=== PATIENT | female | born 1965 | race Caucasian/White ===

== ENCOUNTER → 2018-02-28 | Outpatient (CLI) | payer OTHER | LOC: M WHC 08:03 | DX: Z12.31 Encounter for screening mammogram for malignant neoplasm of breast (principal); E28.39 Other primary ovarian failure | CPT/HCPCS: 77067 ==

== ENCOUNTER 2018-06-03 06:40 | Day surgery (SDC) | payer OTHER ==
[2018-06-03] MEDS: NS 1,000 ML IV (07:00)
[2018-06-03] MEDS ORDERED: PROPOFOL 200 MG/20 ML VIAL As Ordered (07:00)
[2018-06-03] MEDS ORDERED: LIDOCAINE 2% INJ 100 MG/5 ML SDV (FOR ANES.) As Ordered (07:00)
== END 2018-06-03 08:12 | disposition home or self-care (01) ==
LOC: M OPP 06:40
DX: Z12.11 Encounter for screening for malignant neoplasm of colon (principal); D12.5 Benign neoplasm of sigmoid colon; K64.0 First degree hemorrhoids; K57.30 Diverticulosis of large intestine without perforation or abscess without bleeding; Z78.0 Asymptomatic menopausal state; F17.210 Nicotine dependence, cigarettes, uncomplicated; Z88.1 Allergy status to other antibiotic agents; Z80.41 Family history of malignant neoplasm of ovary
CPT/HCPCS: 45385

== ENCOUNTER → 2018-06-19 | Outpatient (REF) | payer OTHER ==
[2018-06-19 12:39] LABS: BASO # 0.1 10^3/uL (0.0-0.2); BASO % 0.7 % (0.0-1.0); EOS # 0.8 10^3/uL (0.0-0.50); EOS % 9.1 % (0.0-3.0); HEMATOCRIT 42.1 % (36.0-47.0); HEMOGLOBIN 14.1 g/dl (12.0-15.5); IMMATURE GRANULOCYTE % 0.2 % (0-3.0); LYMPH # 2.2 10^3/uL (1.5-4.5); LYMPH % 24.1 % (24.0-44.0); MEAN CORPUSCULAR HEMOGLOBIN 31.5 pg (27.0-33.0); MEAN CORPUSCULAR HGB CONC 33.5 g/dl (32.0-36.5); MEAN CORPUSCULAR VOLUME 94.2 fl (80.0-96.0); MONO # 1.2 10^3/uL (0.0-0.8); MONO % 13.6 % (0.0-5.0); NEUTROPHILS # 4.7 10^3/uL (1.8-7.7); NEUTROPHILS % 52.3 % (36.0-66.0); PLATELET COUNT, AUTOMATED 210 10^3/uL (150-450); RED BLOOD COUNT 4.47 10^6/uL (4.00-5.40); RED CELL DISTRIBUTION WIDTH 12.1 % (11.5-14.5)
[2018-06-19 12:57] LABS: ALBUMIN 3.6 GM/DL (3.2-5.2); ALBUMIN/GLOBULIN RATIO 1.24 (1.00-1.93); ALKALINE PHOSPHATASE 82 U/L (45-117); ALT/SGPT 26 U/L (12-78); ANION GAP 4 MEQ/L (8-16); AST/SGOT 16 U/L (7-37); BILIRUBIN,TOTAL 0.3 MG/DL (0.2-1.0); BLOOD UREA NITROGEN 17 MG/DL (7-18); CALCIUM LEVEL 9.1 MG/DL (8.5-10.1); CARBON DIOXIDE LEVEL 28 MEQ/L (21-32); CHLORIDE LEVEL 109 MEQ/L (98-107); CHOLESTEROL LEVEL 200 MG/DL (<200); CHOLESTEROL RISK RATIO 4.255 (<5); CREATININE FOR GFR 0.76 MG/DL (0.55-1.30); FREE T4 0.93 NG/DL (0.76-1.46); GLOMERULAR FILTRATION RATE > 60.0 (>51); GLUCOSE, FASTING 89 MG/DL (70-100); HDL CHOLESTEROL 47 MG/DL (>40); LDL CHOLESTEROL 119 MG/DL (<100); NON-HDL-C 153 MG/DL; SODIUM LEVEL 141 MEQ/L (136-145); TOTAL PROTEIN 6.5 GM/DL (6.4-8.2); TRIGLYCERIDES LEVEL 169 MG/DL (<150)
[2018-06-19 12:59] LABS: PTH INTACT 46.7 PG/ML (18.5-88.0); TOTAL 25(OH) VITAMIN D 21.9 NG/ML (30.0-100.0)
[2018-06-19 13:34] LABS: ESTIMATED AVERAGE GLUCOSE 123 MG/DL (60-110); HEMOGLOBIN A1c 5.9 %
== END ==
LOC: M LABDRAW1 12:23
DX: E66.3 Overweight (principal); E55.9 Vitamin D deficiency, unspecified
CPT/HCPCS: 84443

== ENCOUNTER → 2018-09-03 | Outpatient (CLI) | payer OTHER ==
--- NOTE | 2018-09-04 08:17 | REP ---
Clinical: Nodule by physical examination. Technique: Real time blackwell scale and color evaluation using linear high frequency and curved array transducers. Findings: The thyroid gland is upper limits of normal in size and demonstrates multiple bilateral hypoechoic nodules suggesting the possibility of colloid cysts. Isthmus measures 2.7 mm in width. Right lobe measures 5.3 x 2.4 x 1.8 cm and includes multiple hypoechoic cystic nodules with internal debris measuring 16 x 8 x 11 mm in the upper pole, 8 x 5 x 8 and 8 x 5 x 7 mm in the mid pole, and 7 x 4 x 5 mm in the lower pole. The left lobe measures 5.3 x 1.9 x 1.5 cm and includes dominant complex hypoechoic lesion in the mid pole measuring 18 x 9 x 16 mm along with smaller hypoechoic cystic nodules with internal debris measuring 9 x 5 x 6 mm in the upper pole, 5 x 5 x 4 mm, 6 x 5 x 4 mm, and 7 x 4 x 5 mm in the mid pole. Impression: Bilateral complex hypoechoic cystic nodular lesions the largest of which is noted in the left lobe. Findings are nonspecific but may represent scattered colloid cysts. Electronically Signed by Seamus Kaba MD 09/04/2018 08:08 A
== END ==
LOC: M RAD 10:18
PROVIDERS: ATTEND Family Medicine
DX: E04.1 Nontoxic single thyroid nodule (principal)

== ENCOUNTER → 2018-10-01 | Outpatient (CLI) | payer OTHER ==
[~2018-10-01] MED LIST: LIDOCAINE 1% MDV 20ML VIAL As Ordered ONE
--- NOTE | 2018-10-01 18:31 | REP ---
ULTRASOUND-GUIDED LEFT THYROID BIOPSY The procedure was performed under the direct supervision of Dr. Mckenna. Patient has a history of a hypoechoic lesion in the mid pole of the left thyroid measuring 1.8 x 0.9 x 1.6 cm seen on a previous ultrasound dated 09/03/2018. The risks and benefits of the procedure were explained to the patient and informed consent was obtained. The left thyroid nodule was localized using ultrasound guidance. The skin was prepped and draped in a sterile fashion. 1% lidocaine was used as a local anesthetic. Using ultrasound guidance four fine-needle aspirations were obtained using 25 gauge needles. The patient tolerated the procedure well and there were no immediate complications. After the appropriate amount of monitored convalescence the patient was discharged from the department. Reviewed by THOMAS Jenkins 10/01/2018 05:45 P Electronically Signed by Sandoval Mckenna MD 10/01/2018 06:22 P
== END ==
LOC: M RADPRO 12:56
PROVIDERS: ATTEND Physician Assistant Medical
DX: E04.1 Nontoxic single thyroid nodule (principal); Z88.1 Allergy status to other antibiotic agents

== ENCOUNTER → 2019-05-12 | Outpatient (REF) | payer OTHER ==
[2019-05-12 13:26] LABS: APPEARANCE, URINE HAZY (CLEAR); BACTERIA, URINE AUTO NEGATIVE (NEGATIVE); BILIRUBIN, URINE AUTO NEGATIVE (NEGATIVE); BLOOD, URINE BLOOD NEGATIVE (NEGATIVE); COLOR, URINE YELLOW (YELLOW); GLUCOSE, URINE (UA) AUTO NEGATIVE (NEGATIVE); KETONE, URINE AUTO NEGATIVE (NEGATIVE); LEUKOCYTE ESTERASE, URINE AUTO 1+ (NEGATIVE); MUCUS, URINE SMALL (NEGATIVE); NITRITE, URINE AUTO NEGATIVE (NEGATIVE); PROTEIN, URINE AUTO NEGATIVE (NEGATIVE); RBC, URINE AUTO 1 /HPF (0-3); SPECIFIC GRAVITY URINE AUTO 1.018 (1.002-1.035); SQUAMOUS EPITHELIAL CELL UR AU 8 /HPF (0-6); UROBILINOGEN, URINE AUTO 0.2 mg/dL (0.0-2.0); WBC, URINE AUTO 8 /HPF (0-3)
[2019-05-12 13:44] LABS: ALBUMIN 3.5 GM/DL (3.2-5.2); ALT/SGPT 28 U/L (12-78); BILIRUBIN,TOTAL 0.4 MG/DL (0.2-1.0); BLOOD UREA NITROGEN 19 MG/DL (7-18); CALCIUM LEVEL 9.2 MG/DL (8.5-10.1); CARBON DIOXIDE LEVEL 28 MEQ/L (21-32); CHLORIDE LEVEL 109 MEQ/L (98-107); CREATININE FOR GFR 0.88 MG/DL (0.55-1.30); GLOMERULAR FILTRATION RATE > 60.0 (>51); GLUCOSE, FASTING 89 MG/DL (70-100); POTASSIUM SERUM 4.7 MEQ/L (3.5-5.1); SODIUM LEVEL 143 MEQ/L (136-145); TOTAL PROTEIN 6.7 GM/DL (6.4-8.2)
[2019-05-12 13:52] LABS: VITAMIN B12 LEVEL 351 PG/ML (247-911)
[2019-05-12 13:58] LABS: MALB URINE SIEMENS 13.7 MG/L; MAU/CREAT RATIO 9.9 MCG/MG (0.0-30.0)
[2019-05-12 14:20] LABS: HEMOGLOBIN A1c 5.6 %
[2019-05-13 09:45] LABS: ALBUMIN 4.05 GM/DL (3.29-5.55); ALBUMIN % 60.5 % (55.8-66.1); ALPHA-1-GLOBULIN % 4.8 % (2.9-4.9); ALPHA-1-GLOBULINS 0.32 GM/DL (0.17-0.41); ALPHA-2-GLOBULINS % 10.5 % (7.1-11.8); BETA-1-GLOBULINS 0.38 GM/DL (0.28-0.60); BETA-1-GLOBULINS % 5.7 % (4.7-7.2); BETA-2-GLOBULINS 0.31 GM/DL (0.19-0.55); BETA-2-GLOBULINS % 4.6 % (3.2-6.5); GAMMA GLOBULIN % 13.9 % (11.1-18.8); GAMMA GLOBULINS 0.93 GM/DL (0.65-1.58)
== END ==
LOC: M LABDRAW1 11:41
PROVIDERS: ATTEND Family Medicine
DX: R73.01 Impaired fasting glucose (principal); E55.9 Vitamin D deficiency, unspecified

== ENCOUNTER → 2019-08-25 | Outpatient (CLI) | payer OTHER ==
--- NOTE | 2019-08-26 03:38 | REP ---
Clinical: Multinodular goiter. Comparison: 09/03/2018. Technique: Real time blackwell scale and color evaluation using linear high frequency transducer. Findings: The thyroid gland is heterogeneous and demonstrates scattered complex hypoechoic cystic areas similar to prior examination. Right lobe measures 4.4 x 2.0 x 1.8 cm with complex cysts likely representing colloid cysts measuring between 8 x 4 x 7 mm and 17 x 7 x 8 mm. Left lobe measures 4.7 x 1.8 x 1.2 cm with complex cysts likely representing colloid cysts measuring between 4 x 5 x 2 mm and 10 x 6 x 4 mm. Impression: Bilateral complex cysts similar in appearance to prior examination. Electronically Signed by Seamus Kaba MD 08/26/2019 03:30 A
== END ==
LOC: M RAD 08:45
PROVIDERS: ATTEND Family Medicine
DX: E04.2 Nontoxic multinodular goiter (principal)

== ENCOUNTER → 2019-10-14 | Outpatient (REF) | payer OTHER ==
[2019-10-14 11:11] LABS: CHOLESTEROL LEVEL 201 MG/DL (<200); FREE T4 1.04 NG/DL (0.76-1.46); HDL CHOLESTEROL 50 MG/DL (>40); LDL CHOLESTEROL 131 MG/DL (<100); NON-HDL-C 151 MG/DL; TRIGLYCERIDES LEVEL 102 MG/DL (<150)
[2019-10-16 08:06] LABS: FREE KAPPA LIGHT CHAINS URINE 98.95 mg/L (0.63-113.79); FREE LAMBDA LIGHT CHAINS SERUM 15.3 mg/L (5.7-26.3); FREE LAMBDA LIGHT CHAINS URINE 5.03 mg/L (0.47-11.77); KAPPA/LAMBDA RATIO SERUM 1.57 (0.26-1.65); KAPPA/LAMBDA RATIO URINE 19.67 (1.03-31.76)
[2019-10-16 11:26] LABS: IMMUNOTYPING SERUM IGM ABNORMAL (NORMAL); IMMUNOTYPING SERUM KAPPA ABNORMAL (NORMAL)
== END ==
LOC: M LABDRAW1 10:02
PROVIDERS: ATTEND Family Medicine
DX: E78.2 Mixed hyperlipidemia (principal); R73.01 Impaired fasting glucose; D47.2 Monoclonal gammopathy

== ENCOUNTER → 2020-04-07 | Outpatient (CLI) | payer OTHER ==
[2020-04-07 11:02] LABS: BASO # 0.1 10^3/uL (0.0-0.2); BASO % 0.8 % (0.0-1.0); EOS # 0.7 10^3/uL (0.0-0.5); EOS % 9.2 % (0.0-3.0); HEMATOCRIT 45.7 % (36.0-47.0); HEMOGLOBIN 15.2 g/dl (12.0-15.5); LYMPH # 2.3 10^3/uL (1.5-5.0); MEAN CORPUSCULAR HEMOGLOBIN 31.3 pg (27.0-33.0); MEAN CORPUSCULAR HGB CONC 33.3 g/dl (32.0-36.5); MONO # 1.1 10^3/uL (0.0-0.8); MONO % 15.5 % (0.0-5.0); NEUTROPHILS % 42.2 % (36.0-66.0); PLATELET COUNT, AUTOMATED 210 10^3/uL (150-450); RED BLOOD COUNT 4.86 10^6/uL (4.00-5.40); WHITE BLOOD COUNT 7.2 10^3/uL (4.0-10.0)
[2020-04-07 11:17] LABS: ALBUMIN 3.7 GM/DL (3.2-5.2); ALT/SGPT 24 U/L (12-78); BILIRUBIN,TOTAL 0.4 MG/DL (0.2-1.0); BLOOD UREA NITROGEN 15 MG/DL (7-18); C REACTIVE PROTEIN QUANTITATIV 0.38 MG/DL (0.00-0.30); CALCIUM LEVEL 9.5 MG/DL (8.5-10.1); CARBON DIOXIDE LEVEL 28 MEQ/L (21-32); CHLORIDE LEVEL 107 MEQ/L (98-107); CHOLESTEROL LEVEL 223 MG/DL (<200); CHOLESTEROL RISK RATIO 4.847 (<5); FREE T4 1.09 NG/DL (0.76-1.46); GLOMERULAR FILTRATION RATE > 60.0 (>51); GLUCOSE, FASTING 97 MG/DL (70-100); HDL CHOLESTEROL 46 MG/DL (>40); LDL CHOLESTEROL 149 MG/DL (<100); NON-HDL-C 177 MG/DL; SODIUM LEVEL 139 MEQ/L (136-145); TOTAL PROTEIN 7.1 GM/DL (6.4-8.2); TRIGLYCERIDES LEVEL 138 MG/DL (<150)
[2020-04-07 11:24] LABS: HEMOGLOBIN A1c 5.9 %
[2020-04-08 13:09] LABS: ALBUMIN % 60.6 % (55.8-66.1); ALPHA-1-GLOBULIN % 4.8 % (2.9-4.9); ALPHA-1-GLOBULINS 0.34 GM/DL (0.17-0.41); ALPHA-2-GLOBULINS % 11.2 % (7.1-11.8); BETA-1-GLOBULINS % 5.6 % (4.7-7.2); BETA-2-GLOBULINS 0.33 GM/DL (0.19-0.55); BETA-2-GLOBULINS % 4.7 % (3.2-6.5); GAMMA GLOBULIN % 13.1 % (11.1-18.8); GAMMA GLOBULINS 0.93 GM/DL (0.65-1.58)
== END ==
LOC: M PLALAB 08:09
PROVIDERS: ATTEND Family Medicine
DX: R73.01 Impaired fasting glucose (principal); D47.2 Monoclonal gammopathy; E04.2 Nontoxic multinodular goiter

== ENCOUNTER → 2020-04-13 | Outpatient (CLI) | payer OTHER ==
--- NOTE | 2020-04-13 09:30 | REPMRS ---
Patient History The patient states she has not had a clinical breast exam in over a year. Family history of ovarian cancer under age 50 in mother. Benign incisional biopsy of both breasts. 3D TOMOSYNTHESIS WAS PERFORMED. The [facility] lifetime risk for breast cancer is 10.6%. NATALIIA VILLALBA A. Digital Woman Screen Mammo: April 13, 2020 - Exam #: [id number] Bilateral CC and MLO view(s) were taken. Technologist: Siri Jimenez, Technologist Prior study comparison: February 28, 2018, bilateral digital woman screen mammo performed at [facility]. 2006, bilateral screening mammogram performed at [facility]. FINDINGS: There are scattered fibroglandular densities. There has been no change in the appearance of the mammogram from the prior studies. There is a mild amount of residual fibroglandular tissue which is fairly symmetric. There is no interval development of dominant mass, architectural distortion, or clustered microcalcification suggestive of malignancy. Assessment: BI-RADS/ACR category 1 mammogram. Negative Mammogram. Recommendation Routine screening mammogram in 1 year (for women over age 40). This mammogram was interpreted with the aid of an FDA-approved computer-aided dectection system. Electronically Signed By: Yan Blackburn MD 04/13/20 0924
== END ==
LOC: M WHC 07:53
PROVIDERS: ATTEND Family Medicine
DX: Z12.31 Encounter for screening mammogram for malignant neoplasm of breast (principal); Z80.41 Family history of malignant neoplasm of ovary

== ENCOUNTER → 2020-10-22 | Outpatient (REF) | payer OTHER ==
[2020-10-22 11:04] LABS: BASO # 0.1 10^3/uL (0.0-0.2); BASO % 0.7 % (0.0-1.0); EOS # 0.6 10^3/uL (0.0-0.5); EOS % 6.3 % (0.0-3.0); HEMATOCRIT 45.2 % (36.0-47.0); LYMPH # 2.5 10^3/uL (1.5-5.0); LYMPH % 27.7 % (24.0-44.0); MEAN CORPUSCULAR HEMOGLOBIN 31.2 pg (27.0-33.0); MEAN CORPUSCULAR HGB CONC 33.2 g/dl (32.0-36.5); MONO # 1.3 10^3/uL (0.0-0.8); MONO % 14.2 % (2.0-8.0); NEUTROPHILS # 4.6 10^3/uL (1.5-8.5); NEUTROPHILS % 50.9 % (36.0-66.0); PLATELET COUNT, AUTOMATED 209 10^3/uL (150-450); RED BLOOD COUNT 4.81 10^6/uL (4.00-5.40)
[2020-10-22 11:40] LABS: ALT/SGPT 22 U/L (12-78); BILIRUBIN,TOTAL 0.5 MG/DL (0.2-1.0); BLOOD UREA NITROGEN 20 MG/DL (7-18); CALCIUM LEVEL 9.8 MG/DL (8.5-10.1); CARBON DIOXIDE LEVEL 29 MEQ/L (21-32); CHLORIDE LEVEL 107 MEQ/L (98-107); CHOLESTEROL LEVEL 192 MG/DL (<200); CHOLESTEROL RISK RATIO 4.173 (<5); CPK CREATINE PHOSPHOKINASE 48 U/L (26-192); CREATININE FOR GFR 0.88 MG/DL (0.55-1.30); GLOMERULAR FILTRATION RATE > 60.0 (>51); GLUCOSE, FASTING 103 MG/DL (70-100); HDL CHOLESTEROL 46 MG/DL (>40); LDL CHOLESTEROL 119 MG/DL (<100); NON-HDL-C 146 MG/DL; POTASSIUM SERUM 4.8 MEQ/L (3.5-5.1); SODIUM LEVEL 141 MEQ/L (136-145); TRIGLYCERIDES LEVEL 134 MG/DL (<150)
[2020-10-22 13:11] LABS: HEMOGLOBIN A1c 5.6 %
[2020-10-25 12:28] LABS: ALBUMIN 4.18 GM/DL (3.29-5.55); ALBUMIN % 59.7 % (55.8-66.1); ALPHA-1-GLOBULINS 0.35 GM/DL (0.17-0.41); ALPHA-2-GLOBULINS 0.83 GM/DL (0.42-0.99); ALPHA-2-GLOBULINS % 11.8 % (7.1-11.8); BETA-1-GLOBULINS 0.38 GM/DL (0.28-0.60); BETA-1-GLOBULINS % 5.4 % (4.7-7.2); BETA-2-GLOBULINS 0.33 GM/DL (0.19-0.55); BETA-2-GLOBULINS % 4.7 % (3.2-6.5); GAMMA GLOBULIN % 13.4 % (11.1-18.8); GAMMA GLOBULINS 0.94 GM/DL (0.65-1.58)
== END ==
LOC: M SFHCPLAZ 08:25
PROVIDERS: ATTEND Family Medicine
DX: E55.9 Vitamin D deficiency, unspecified (principal); R73.01 Impaired fasting glucose; E78.2 Mixed hyperlipidemia; D47.2 Monoclonal gammopathy

== ENCOUNTER → 2020-11-17 | Outpatient (REF) | payer OTHER | LOC: M SFHCPLAZ 16:43 | PROVIDERS: ATTEND Family Medicine | DX: N61.1 Abscess of the breast and nipple (principal) ==

== ENCOUNTER → 2021-04-15 | Outpatient (CLI) | payer OTHER ==
[2021-04-15 13:28] LABS: APPEARANCE, URINE CLEAR (CLEAR); BACTERIA, URINE AUTO NEGATIVE (NEGATIVE); BILIRUBIN, URINE AUTO NEGATIVE (NEGATIVE); BLOOD, URINE BLOOD NEGATIVE (NEGATIVE); COLOR, URINE YELLOW (YELLOW); GLUCOSE, URINE (UA) AUTO NEGATIVE (NEGATIVE); KETONE, URINE AUTO NEGATIVE (NEGATIVE); LEUKOCYTE ESTERASE, URINE AUTO NEGATIVE (NEGATIVE); NITRITE, URINE AUTO NEGATIVE (NEGATIVE); PROTEIN, URINE AUTO NEGATIVE (NEGATIVE); RBC, URINE AUTO 1 /HPF (0-3); SPECIFIC GRAVITY URINE AUTO 1.014 (1.002-1.035); SQUAMOUS EPITHELIAL CELL UR AU 2 /HPF (0-6); UROBILINOGEN, URINE AUTO 0.2 mg/dL (0.0-2.0); WBC, URINE AUTO 1 /HPF (0-3)
[2021-04-15 13:59] LABS: C REACTIVE PROTEIN QUANTITATIV < 0.30 MG/DL (0.00-0.30); CHOLESTEROL LEVEL 217 MG/DL (<200); CPK CREATINE PHOSPHOKINASE 59 U/L (26-192); HDL CHOLESTEROL 48 MG/DL (>40); LDL CHOLESTEROL 142 MG/DL (<100); NON-HDL-C 169 MG/DL; TOTAL PROTEIN 6.7 GM/DL (6.4-8.2); TRIGLYCERIDES LEVEL 137 MG/DL (<150)
[2021-04-15 14:15] LABS: CREATININE, URINE 78.8 MG/DL; MAU/CREAT RATIO 8.8 MCG/MG (0.0-30.0)
[2021-04-15 14:46] LABS: HEMOGLOBIN A1c 5.9 %
[2021-04-19 08:54] LABS: ALBUMIN 4.03 GM/DL (3.29-5.55); ALBUMIN % 60.2 % (55.8-66.1); ALPHA-1-GLOBULIN % 4.8 % (2.9-4.9); ALPHA-1-GLOBULINS 0.32 GM/DL (0.17-0.41); ALPHA-2-GLOBULINS 0.79 GM/DL (0.42-0.99); ALPHA-2-GLOBULINS % 11.8 % (7.1-11.8); BETA-1-GLOBULINS 0.35 GM/DL (0.28-0.60); BETA-1-GLOBULINS % 5.2 % (4.7-7.2); BETA-2-GLOBULINS 0.29 GM/DL (0.19-0.55); BETA-2-GLOBULINS % 4.4 % (3.2-6.5); GAMMA GLOBULIN % 13.6 % (11.1-18.8)
[2021-04-19 08:55] LABS: GAMMA GLOBULINS 0.91 GM/DL (0.65-1.58)
[2021-04-19 23:07] LABS: FREE KAPPA LIGHT CHAINS SERUM 33.2 mg/L (3.3-19.4); FREE KAPPA LIGHT CHAINS URINE 26.52 mg/L (0.63-113.79); FREE LAMBDA LIGHT CHAINS SERUM 15.7 mg/L (5.7-26.3); FREE LAMBDA LIGHT CHAINS URINE 3.05 mg/L (0.47-11.77); KAPPA/LAMBDA RATIO SERUM 2.11 (0.26-1.65); KAPPA/LAMBDA RATIO URINE 8.7 (1.03-31.76)
== END ==
LOC: M PLALAB 09:43
PROVIDERS: ATTEND Family Medicine
DX: D47.2 Monoclonal gammopathy (principal)

== ENCOUNTER → 2021-10-13 | Outpatient (CLI) | payer OTHER ==
[2021-10-13 11:24] LABS: HEMATOCRIT 42.5 % (36.0-47.0)
[2021-10-13 11:31] LABS: BASO # 0.1 10^3/uL (0.0-0.2); BASO % 1.1 % (0.0-1.0); EOS # 0.7 10^3/uL (0.0-0.5); EOS % 9.7 % (0.0-3.0); HEMATOCRIT 42.3 % (36.0-47.0); HEMOGLOBIN 14.2 g/dl (12.0-15.5); LYMPH % 39.4 % (24.0-44.0); MEAN CORPUSCULAR HGB CONC 33.6 g/dl (32.0-36.5); MEAN CORPUSCULAR VOLUME 92.4 fl (80.0-96.0); MONO # 1.1 10^3/uL (0.0-0.8); MONO % 14.9 % (2.0-8.0); NEUTROPHILS # 2.6 10^3/uL (1.5-8.5); NEUTROPHILS % 34.6 % (36.0-66.0); PLATELET COUNT, AUTOMATED 189 10^3/uL (150-450); RED BLOOD COUNT 4.58 10^6/uL (4.00-5.40); WHITE BLOOD COUNT 7.6 10^3/uL (4.0-10.0)
[2021-10-13 11:58] LABS: HEMOGLOBIN A1c 5.7 %
[2021-10-13 16:31] LABS: ALBUMIN 3.7 GM/DL (3.2-5.2); ALT/SGPT 32 U/L (12-78); BILIRUBIN,TOTAL 0.2 MG/DL (0.2-1.0); BLOOD UREA NITROGEN 27 MG/DL (7-18); CALCIUM LEVEL 9.6 MG/DL (8.5-10.1); CARBON DIOXIDE LEVEL 30 MEQ/L (21-32); CHOLESTEROL LEVEL 241 MG/DL (<200); CHOLESTEROL RISK RATIO 5.878 (<5); CREATININE FOR GFR 0.78 MG/DL (0.55-1.30); FREE T4 0.87 NG/DL (0.76-1.46); GLOMERULAR FILTRATION RATE > 60.0 (>51); GLUCOSE, FASTING 89 MG/DL (70-100); HDL CHOLESTEROL 41 MG/DL (>40); LDL CHOLESTEROL 146 MG/DL (<100); NON-HDL-C 200 MG/DL; PTH INTACT 75.9 PG/ML (18.5-88.0); TOTAL PROTEIN 6.9 GM/DL (6.4-8.2); TRIGLYCERIDES LEVEL 268 MG/DL (<150); VITAMIN B12 LEVEL 420 PG/ML (247-911)
[2021-10-13 21:17] LABS: CHLORIDE LEVEL 109 MEQ/L (98-107); POTASSIUM SERUM 4.8 MEQ/L (3.5-5.1); SODIUM LEVEL 142 MEQ/L (136-145)
== END ==
LOC: M PLALAB 07:33
PROVIDERS: ATTEND Family Medicine
DX: D75.89 Other specified diseases of blood and blood-forming organs (principal)

== ENCOUNTER → 2021-11-03 | Outpatient (CLI) | payer OTHER | LOC: M WHC 13:57 | PROVIDERS: ATTEND Family Medicine | DX: E04.2 Nontoxic multinodular goiter (principal) ==

== ENCOUNTER → 2022-04-20 | Outpatient (CLI) | payer OTHER ==
[2022-04-20 10:24] LABS: BASO # 0.1 10^3/uL (0.0-0.2); EOS # 0.7 10^3/uL (0.0-0.5); EOS % 10.5 % (0.0-3.0); HEMATOCRIT 43.4 % (36.0-47.0); HEMOGLOBIN 14.4 g/dl (12.0-15.5); LYMPH # 2.4 10^3/uL (1.5-5.0); LYMPH % 34.8 % (24.0-44.0); MEAN CORPUSCULAR HEMOGLOBIN 31.4 pg (27.0-33.0); MEAN CORPUSCULAR HGB CONC 33.2 g/dl (32.0-36.5); MEAN CORPUSCULAR VOLUME 94.8 fl (80.0-96.0); MONO % 14.8 % (2.0-8.0); NEUTROPHILS # 2.7 10^3/uL (1.5-8.5); NEUTROPHILS % 38.6 % (36.0-66.0); PLATELET COUNT, AUTOMATED 191 10^3/uL (150-450); RED BLOOD COUNT 4.58 10^6/uL (4.00-5.40)
[2022-04-20 11:29] LABS: ALBUMIN 3.4 GM/DL (3.2-5.2); ALT/SGPT 21 U/L (12-78); BILIRUBIN,TOTAL 0.4 MG/DL (0.2-1.0); BLOOD UREA NITROGEN 14 MG/DL (7-18); CALCIUM LEVEL 9.1 MG/DL (8.5-10.1); CARBON DIOXIDE LEVEL 28 MEQ/L (21-32); CHLORIDE LEVEL 108 MEQ/L (98-107); CHOLESTEROL LEVEL 187 MG/DL (<200); CREATININE FOR GFR 0.72 MG/DL (0.55-1.30); GLOMERULAR FILTRATION RATE > 60.0 (>51); GLUCOSE, FASTING 90 MG/DL (70-100); HDL CHOLESTEROL 50 MG/DL (>40); LDL CHOLESTEROL 110 MG/DL (<100); NON-HDL-C 137 MG/DL; POTASSIUM SERUM 5.1 MEQ/L (3.5-5.1); SODIUM LEVEL 138 MEQ/L (136-145); TOTAL PROTEIN 6.6 GM/DL (6.4-8.2); TRIGLYCERIDES LEVEL 135 MG/DL (<150)
[2022-04-20 12:49] LABS: HEMOGLOBIN A1c 5.8 %
[2022-04-21 07:07] LABS: APOLIPOPROTEIN B/A-1 RATIO 0.6 ratio (0.0-0.6)
[2022-04-21 09:22] LABS: ALBUMIN 3.95 GM/DL (3.29-5.55); ALBUMIN % 59.9 % (55.8-66.1); ALPHA-1-GLOBULIN % 5.1 % (2.9-4.9); ALPHA-1-GLOBULINS 0.34 GM/DL (0.17-0.41); ALPHA-2-GLOBULINS % 10.6 % (7.1-11.8); BETA-2-GLOBULINS % 4.9 % (3.2-6.5); GAMMA GLOBULIN % 14.5 % (11.1-18.8)
[2022-04-21 09:23] LABS: BETA-1-GLOBULINS 0.33 GM/DL (0.28-0.60); BETA-2-GLOBULINS 0.32 GM/DL (0.19-0.55); GAMMA GLOBULINS 0.96 GM/DL (0.65-1.58)
== END ==
LOC: M PLALAB 08:56
PROVIDERS: ATTEND Family Medicine
DX: D47.2 Monoclonal gammopathy (principal); R73.01 Impaired fasting glucose; E78.2 Mixed hyperlipidemia

== ENCOUNTER → 2022-11-01 | Outpatient (CLI) | payer OTHER ==
[2022-11-01 11:46] LABS: BASO # 0.1 10^3/uL (0.0-0.2); BASO % 0.9 % (0.0-1.0); EOS # 0.7 10^3/uL (0.0-0.5); EOS % 10.3 % (0.0-3.0); HEMATOCRIT 45.9 % (36.0-47.0); LYMPH # 2.5 10^3/uL (1.5-5.0); LYMPH % 35.8 % (24.0-44.0); MEAN CORPUSCULAR HEMOGLOBIN 31.3 pg (27.0-33.0); MEAN CORPUSCULAR HGB CONC 32.7 g/dl (32.0-36.5); MEAN CORPUSCULAR VOLUME 95.8 fl (80.0-96.0); MONO % 13.7 % (2.0-8.0); NEUTROPHILS # 2.8 10^3/uL (1.5-8.5); NEUTROPHILS % 39.2 % (36.0-66.0); PLATELET COUNT, AUTOMATED 184 10^3/uL (150-450); RED BLOOD COUNT 4.79 10^6/uL (4.00-5.40)
[2022-11-01 12:22] LABS: HEMOGLOBIN A1c 5.7 % (4.0-6.0)
[2022-11-01 12:30] LABS: ALBUMIN 3.8 G/DL (3.2-5.2); ALKALINE PHOSPHATASE 88 U/L (46-116); ALT/SGPT 22 U/L (7.0-40); AST/SGOT 15 U/L (<34); BILIRUBIN,TOTAL 0.5 MG/DL (0.3-1.2); BLOOD UREA NITROGEN 15 MG/DL (9-23); CALCIUM LEVEL 9.6 MG/DL (8.5-10.1); CARBON DIOXIDE LEVEL 30 MMOL/L (20-31); CHLORIDE LEVEL 105 MMOL/L (98-107); CREATININE FOR GFR 0.72 MG/DL (0.55-1.30); GLOMERULAR FILTRATION RATE > 60.0 (>51); GLUCOSE, FASTING 95 MG/DL (60-100); POTASSIUM SERUM 5.4 MMOL/L (3.5-5.1); PTH INTACT 64.4 PG/ML (18.5-88.0); SODIUM LEVEL 140 MMOL/L (136-145); TOTAL 25(OH) VITAMIN D 45.5 NG/ML (20.0-100.0)
[2022-11-01 12:42] LABS: TOTAL PROTEIN 6.6 G/DL (5.7-8.2)
== END ==
LOC: M PLALAB 08:43
PROVIDERS: ATTEND Family Medicine
DX: Z00.00 Encounter for general adult medical examination without abnormal findings (principal); E78.2 Mixed hyperlipidemia; R73.01 Impaired fasting glucose; D47.2 Monoclonal gammopathy

== ENCOUNTER → 2023-05-01 | Outpatient (CLI) | payer OTHER ==
[2023-05-01 14:01] LABS: BASO # 0.1 10^3/uL (0.0-0.2); BASO % 0.8 % (0.0-1.0); EOS # 0.8 10^3/uL (0.0-0.5); EOS % 11.1 % (0.0-3.0); HEMATOCRIT 46.4 % (36.0-47.0); HEMOGLOBIN 15.3 g/dl (12.0-15.5); LYMPH # 2.2 10^3/uL (1.5-5.0); LYMPH % 30.7 % (24.0-44.0); MEAN CORPUSCULAR HEMOGLOBIN 31.2 pg (27.0-33.0); MEAN CORPUSCULAR VOLUME 94.7 fl (80.0-96.0); MONO % 13.6 % (2.0-8.0); NEUTROPHILS # 3.2 10^3/uL (1.5-8.5); NEUTROPHILS % 43.7 % (36.0-66.0); PLATELET COUNT, AUTOMATED 195 10^3/uL (150-450); WHITE BLOOD COUNT 7.2 10^3/uL (4.0-10.0)
[2023-05-01 14:32] LABS: HEMOGLOBIN A1c 5.2 % (4.0-6.0)
[2023-05-01 14:37] LABS: FERRITIN 82.1 NG/ML (7.3-270.7)
[2023-05-01 14:51] LABS: ALBUMIN 3.7 G/DL (3.2-5.2); ALKALINE PHOSPHATASE 95 U/L (46-116); ALT/SGPT 22 U/L (7.0-40); AST/SGOT 14 U/L (<34); BILIRUBIN,TOTAL 0.4 MG/DL (0.3-1.2); BLOOD UREA NITROGEN 14 MG/DL (9-23); CALCIUM LEVEL 9.6 MG/DL (8.5-10.1); CARBON DIOXIDE LEVEL 27 MMOL/L (20-31); CHLORIDE LEVEL 106 MMOL/L (98-107); CREATININE FOR GFR 0.73 MG/DL (0.55-1.30); GLOMERULAR FILTRATION RATE > 60.0 (>51); GLUCOSE, FASTING 93 MG/DL (60-100); POTASSIUM SERUM 4.7 MMOL/L (3.5-5.1); SODIUM LEVEL 140 MMOL/L (136-145); TOTAL PROTEIN 6.8 G/DL (5.7-8.2)
== END ==
LOC: M PLALAB 09:24
PROVIDERS: ATTEND Family Medicine
DX: R73.01 Impaired fasting glucose (principal); D47.2 Monoclonal gammopathy

== ENCOUNTER → 2023-11-01 | Outpatient (CLI) | payer OTHER ==
[2023-11-01 14:34] LABS: HEMOGLOBIN A1c 5.7 % (4.0-6.0)
[2023-11-01 14:50] LABS: TOTAL 25(OH) VITAMIN D 26.4 NG/ML (20.0-100.0)
[2023-11-01 14:53] LABS: ALBUMIN 3.8 G/DL (3.2-5.2); ALKALINE PHOSPHATASE 89 U/L (46-116); ALT/SGPT 20 U/L (7.0-40); AST/SGOT 11 U/L (<34); BILIRUBIN,TOTAL 0.5 MG/DL (0.3-1.2); BLOOD UREA NITROGEN 16 MG/DL (9-23); CALCIUM LEVEL 9.3 MG/DL (8.5-10.1); CARBON DIOXIDE LEVEL 29 MMOL/L (20-31); CHLORIDE LEVEL 110 MMOL/L (98-107); CHOLESTEROL LEVEL 140 MG/DL (<200); CHOLESTEROL RISK RATIO 3.38 (<5); CREATININE FOR GFR 0.79 MG/DL (0.55-1.30); GLOMERULAR FILTRATION RATE > 60.0 (>51); GLUCOSE, FASTING 91 MG/DL (60-100); HDL CHOLESTEROL 41.3 MG/DL (>40); LDL CHOLESTEROL 78.3 MG/DL (<100); NON-HDL-C 98.7 MG/DL; POTASSIUM SERUM 5.5 MMOL/L (3.5-5.1); PTH INTACT 93.5 PG/ML (18.5-88.0); SODIUM LEVEL 141 MMOL/L (136-145); TOTAL PROTEIN 6.6 G/DL (5.7-8.2); TRIGLYCERIDES LEVEL 102 MG/DL (<150)
[2023-11-02 17:07] LABS: FREE KAPPA LIGHT CHAINS SERUM 33.4 mg/L (3.3-19.4); FREE LAMBDA LIGHT CHAINS SERUM 15.6 mg/L (5.7-26.3); INSULIN LEVEL 10.5 uIU/mL (2.6-24.9); KAPPA/LAMBDA RATIO SERUM 2.14 (0.26-1.65)
== END ==
LOC: M PLALAB 09:37
PROVIDERS: ATTEND Family Medicine
DX: E55.9 Vitamin D deficiency, unspecified (principal); E78.2 Mixed hyperlipidemia; R73.01 Impaired fasting glucose; D47.2 Monoclonal gammopathy

== ENCOUNTER → 2024-03-03 | Outpatient (REF) | payer OTHER | LOC: CANPREREF → M SFHCPLAZ 17:33 | PROVIDERS: ATTEND Family Medicine | DX: E55.9 Vitamin D deficiency, unspecified (principal); D47.2 Monoclonal gammopathy; R73.01 Impaired fasting glucose ==

== ENCOUNTER → 2024-06-23 | Outpatient (CLI) | payer OTHER | LOC: M RAD 16:34 | PROVIDERS: ATTEND Family Medicine | DX: Z12.2 Encounter for screening for malignant neoplasm of respiratory organs (principal); F17.210 Nicotine dependence, cigarettes, uncomplicated; J98.11 Atelectasis; J98.4 Other disorders of lung ==

== ENCOUNTER → 2024-10-21 | Outpatient (CLI) | payer OTHER ==
[2024-10-21 12:32] LABS: HEMOGLOBIN A1c 5.5 % (4.0-6.0)
[2024-10-21 12:45] LABS: ALBUMIN 3.5 G/DL (3.2-5.2); ALKALINE PHOSPHATASE 80 U/L (35-104); ALT/SGPT 23 U/L (7.0-40); AST/SGOT 12 U/L (<34); BILIRUBIN,TOTAL 0.4 MG/DL (0.3-1.2); BLOOD UREA NITROGEN 21 MG/DL (9-23); CALCIUM LEVEL 9.2 MG/DL (8.5-10.1); CARBON DIOXIDE LEVEL 26 MMOL/L (20-31); CHLORIDE LEVEL 110 MMOL/L (98-107); CREATININE FOR GFR 0.75 MG/DL (0.55-1.30); FERRITIN 63.4 NG/ML (7.3-270.7); GLOMERULAR FILTRATION RATE > 60.0 (>51); GLUCOSE, FASTING 89 MG/DL (60-100); POTASSIUM SERUM 4.8 MMOL/L (3.5-5.1); PTH INTACT 71.3 PG/ML (18.5-88.0); SODIUM LEVEL 143 MMOL/L (136-145); TOTAL 25(OH) VITAMIN D 39.7 NG/ML (20.0-100.0); TOTAL PROTEIN 6.5 G/DL (5.7-8.2)
[2024-10-22 15:17] LABS: PROTEIN, TOTAL SO 6.4 g/dL (6.1-8.1)
[2024-10-23 16:12] LABS: FREE KAPPA LIGHT CHAINS SERUM 25.3 mg/L (3.3-19.4); KAPPA/LAMBDA RATIO SERUM 1.81 (0.26-1.65)
[2024-10-24 06:28] LABS: ALPHA 1 GLOBULINS SO 0.3 g/dL (0.2-0.3); ALPHA 2 GLOBULINS SO 0.6 g/dL (0.5-0.9); BETA 2 GLOBULIN SO 0.3 g/dL (0.2-0.5); BETA GLOBULIN SO 0.4 g/dL (0.4-0.6); GAMMA GLOBULINS SO 0.9 g/dL (0.8-1.7); SPEP IFE ABN PROTEIN BAND 1 0.4 g/dL (NONE DETECTED)
== END ==
LOC: M PLALAB 08:21
PROVIDERS: ATTEND Family Medicine
DX: E55.9 Vitamin D deficiency, unspecified (principal); D47.2 Monoclonal gammopathy

== ENCOUNTER → 2024-10-28 | Outpatient (CLI) | payer OTHER | LOC: M WHC 07:56 | PROVIDERS: ATTEND Family Medicine | DX: Z12.31 Encounter for screening mammogram for malignant neoplasm of breast (principal) ==

== ENCOUNTER → 2025-04-25 | Outpatient (CLI) | payer OTHER ==
[2025-04-25 13:21] LABS: ESTIMATED AVERAGE GLUCOSE 117.0 MG/DL (60-110)
[2025-04-25 13:48] LABS: FREE T4 1.31 NG/DL (0.89-1.76)
[2025-04-25 13:49] LABS: ALT/SGPT 22.0 U/L (7.0-40); AST/SGOT 18.0 U/L (<34); CALCIUM LEVEL 9.2 MG/DL (8.5-10.1); CARBON DIOXIDE LEVEL 28.0 MMOL/L (20-31); CHLORIDE LEVEL 108.0 MMOL/L (98-107); CHOLESTEROL LEVEL 168.0 MG/DL (<200); CHOLESTEROL RISK RATIO 3.38 (<5); CREATININE FOR GFR 0.83 MG/DL (0.55-1.30); GLOMERULAR FILTRATION RATE 81.7 (>51); LDL CHOLESTEROL 97.4 MG/DL (<100); NON-HDL-C 118.4 MG/DL; POTASSIUM SERUM 4.4 MMOL/L (3.5-5.1); SODIUM LEVEL 142.0 MMOL/L (136-145); TRIGLYCERIDES LEVEL 105.0 MG/DL (<150)
[2025-04-28 02:32] LABS: PROTEIN, TOTAL SO 6.7 g/dL (6.1-8.1)
== END ==
LOC: M LAB 11:58
PROVIDERS: ATTEND Family Medicine
DX: E78.2 Mixed hyperlipidemia (principal); E55.9 Vitamin D deficiency, unspecified; D47.2 Monoclonal gammopathy; R73.01 Impaired fasting glucose

== ENCOUNTER 2025-06-29 10:08 | Day surgery (SDC) | payer OTHER ==
[~2025-06-29] VITALS: Ht 165.1 cm; Wt 88.3 kg
[~2025-06-29 10:08] MED LIST changes: -LIDOCAINE 1% MDV 20ML VIAL As Ordered ONE; +ROSU10TA90 PO
[2025-06-29 11:30] VITALS: TEMP 97.4
[2025-06-29 11:44] VITALS: BP 103/63; O2SAT 96
== END 2025-06-29 11:54 | disposition home or self-care (01) ==
LOC: M OPP 10:08
PROVIDERS: ATTEND Internal Medicine Gastroenterology
DX: Z12.11 Encounter for screening for malignant neoplasm of colon (principal); K64.0 First degree hemorrhoids; K57.30 Diverticulosis of large intestine without perforation or abscess without bleeding; Z86.0100 Personal history of colon polyps, unspecified; Z88.1 Allergy status to other antibiotic agents; Z79.899 Other long term (current) drug therapy; F17.210 Nicotine dependence, cigarettes, uncomplicated